=== PATIENT | male | born 1975 | race Caucasian/White ===

== ENCOUNTER 2018-01-21 10:37 | Outpatient (CLI) | payer OTHER ==
--- NOTE | 2018-01-21 12:34 | MRI ---
MRI LEFT KNEE: 01/21/2018 PROVIDED CLINICAL HISTORY: Left knee pain status post injury. FINDINGS: There is linear fluid signal intensity involving the posterolateral bundle of the proximal anterior c ruciate ligament. The posterior cruciate ligament, medial collateral ligament, and lateral collatera l ligament complex appear intact. There is fluid signal intensity about the MCL, to a minimal degree . There is a partial thickness radial tear involving the posterior horn of the medial meniscus without meniscal displacement. Some degree of parrot beak type extension to involve the posterior horn-body junction may also be present. More peripheral tear vs meniscocapsular separation involving the poste rior horn. The lateral meniscus demonstrates no evidence for tear. No focal articular cartilage defect is apparent. There is patchy marrow edema present, involving the posterior medial tibial plateau. Regional marrow and muscular signal appear otherwise normal. Tiny amount of fluid within the medial head gastrocnem ius/semimembranosus bursa. Minimal increased signal intensity on fluid sensitive sequences involving the proximal patellar tendon. IMPRESSION: 1. Tears involving the posterior horn of the medial meniscus, as described above. 2. Fluid signal intensity involving the proximal posterolateral bundle of the anterior cruciate liga ment may reflect partial tear. 3. Fluid signal intensity about the medial collateral ligament, which appears intact. Please correl ate for low grade injury. 4. Mild contusion involving the posteromedial tibial plateau. 5. Findings suggesting mild patellar tendinitis. 6. Mild knee joint effusion. POS: OFF
== END 2018-01-21 10:38 | disposition home or self-care (01) ==
LOC: TBSIIMAG 10:37
PROVIDERS: ATTEND Orthopaedic Surgery
DX: M25.562 Pain in left knee (principal); S83.242A Other tear of medial meniscus, current injury, left knee, initial encounter; S80.12XA Contusion of left lower leg, initial encounter; R93.8 Abnormal findings on diagnostic imaging of other specified body structures; M25.462 Effusion, left knee